=== PATIENT | female | born 1950 | race Caucasian/White ===

== ENCOUNTER 2017-01-23 19:57 | Emergency (ER) | payer OTHER ==
[~2017-01-23] VITALS: Ht 165.1 cm; Wt 70.3 kg
--- NOTE | 2017-01-23 20:50 | RADIOLOGY REPORT ---
EXAMINATION: ELBOW 3 VIEWS, RIGHT CLINICAL INFORMATION: Right elbow pain. COMPARISON: None. TECHNIQUE: AP, lateral, oblique views of the right elbow are provided. FINDINGS: There are no fractures or dislocations. There is no elbow joint effusion. There is mild degenerative change about the olecranon and coronoid process. IMPRESSION: Mild degenerative change. No evidence for acute injury.
--- NOTE | 2017-01-23 20:52 | RADIOLOGY REPORT ---
EXAMINATION: WRIST 4 VIEWS, RIGHT CLINICAL INFORMATION: Right wrist pain. COMPARISON: None. TECHNIQUE: AP, lateral, oblique, scaphoid views of the right wrist are provided. FINDINGS: There are no fractures or dislocations. There is no displacement of the pronator fat pad. The proximal carpal row is intact. IMPRESSION: Unremarkable right wrist radiographs.
--- NOTE | 2017-01-23 21:00 | ED UPPER/LOWER EXTREMITY COMPL ---
History of Present Illness General Chief Complaint: Upper Extremity Injury Stated Complaint: R ARM PAIN S/P TRIP AND FALL Source: patient Exam Limitations: no limitations Vital Signs & Intake/Output Vital Signs & Intake/Output Vital Signs Date Time Temp Pulse Resp B/P B/P Pulse O2 O2 Flow FiO2 Mean Ox Delivery Rate 01/23 2129 96.1 86 18 125/75 92 Room Air 01/23 2011 98.8 98 18 132/85 97 Room Air ED Intake and Output 01/24 0000 01/23 1200 Intake Total Output Total Balance Patient 155 lb Weight Weight Reported by Patient Measurement Method Allergies Coded Allergies: No Known Drug Allergies (NKDA 01/23/17) Triage Note: PT TO ED C/O RT ELBOW TO WRIST PAIN S/P TRIP AND FALL APPROX 2 HRS DIRECTOR OF EPIDEMIOLOGY. PT DENIES LOC. TOOK 600 MG IBUPROFIN APPROX 45 MINS DIRECTOR OF EPIDEMIOLOGY. HAS ABRAION TO BRIDGE OF NOSE. WAS NOT WEARING GLASSES AT THE TIME. GOOD PMS TO RT HAND. PAIN WORSE WITH MOVEMENT Triage Nurses Notes Reviewed? yes Onset: Abrupt Duration: hour(s): (4) Timing: no prior history Severity: moderate Severity Numbers: 7 Pain/Injury Location: Right: Elbow, Wrist. Method of Injury: fall Modifying Factors: Improves With: immobilization. Worsens With: movement. HPI: Patient is a 66-year-old female presenting to the emergency department complaining of right wrist, right elbow pain after trip and fall prior to arrival. Pain is achy throbbing worse with range of motion and palpation. She reports that she tripped over a garden hose and fell onto her right arm. Pain in the elbow more than the wrist. She took ibuprofen prior to arrival with little relief. Denies any loss of consciousness but does report that she had her face. Sensory tetanus immunization. No visual changes. Denies any nausea vomiting fevers or chills chest pain or shortness of breath. Chest was skinned her left knee. Reports mild tingling in her hand. (DEJUAN MORALES,MARAH) Past History Travel History Traveled to [place] past 21 day No Medical History Any Pertinent Medical History? see below for history Cardiovascular: hyperlipidemia Endocrine: hypothyroidism Surgical History Surgical History: non-contributory Psychosocial History What is your primary language French Tobacco Use: Current Daily Use Daily Tobacco Use Amount/Type: => 5 Cigarettes daily ETOH Use: occasional use Illicit Drug Use: denies illicit drug use Family History Hx Contributory? No (MARAH MCHUGH) Review of Systems Review of Systems Constitutional: Reports: no symptoms. Comments Review of systems: See HPI, All other systems negative. Constitutional, no chills fever or weight loss HEENT: No visual changes no sore throat no congestion Cardiovascular: No chest pain ,palpitation , orthopnea or ankle swelling Skin, no jaundice no rashes Respiratory: No dyspnea cough sputum or hemoptysis GI: No nausea no vomiting : No dysuria No hematuria Muscle skeletal: no back pain, no neck pain, Neurologic: No numbness no confusion, no headache Psych: No stress anxiety Immunology: No splenectomy or history of AIDS (MARAH MCHUGH) Physical Exam Physical Exam General Appearance: well developed/nourished, no apparent distress, alert, awake , comfortable Comments: Well-developed well-nourished person in no acute distress HEENT: extraocular motion intact, no nystagmus. Pupils equally round and reactive to light and accommodation. Superficial abrasion to the nose, no tenderness to palpation over the nasal bridge. No septal hematoma appreciated on exam. External auditory canal and Tympanic membranes clear. Pharynx normal. No swelling or edema. Neck: Supple, no lymphadenopathy, normal range of motion without pain or tenderness, no C-spine tenderness. Full range of motion. Back: Nontender Cardiovascular: Regular rate and rhythms no murmurs rubs or gallops, normal JVP Respiratory: Chest nontender. No respiratory distress.breath sounds clear to auscultation bilaterally Extremity: Tenderness palpation over the distal radius. No snuffbox tenderness. Capillary refill is intact in a virtually bilaterally. Radial pulses is 2+ bilaterally. Motor and sensory intact in upper extremity bilaterally. Tender to palpation over the right olecranon. Limited range of motion of right elbow secondary to pain. Neuro: Alert oriented x3, motor sensory normal Skin: Superficial abrasion noted on the nasal bridge, approximately 1 cm in size. No active bleeding. No surrounding erythema or edema. Another abrasion noted on the left knee covered with dressing, dressing is intact. Otherwise No appreciable rash on exposed skin, skin is warm and dry. Psych: Mood and affect is normal, memory and judgment is normal. (MARAH MCHUGH) Progress Differential Diagnosis: contusion, dislocation, fracture, sprain, tendon injury Plan of Care: Orders Procedure Date/time Status Durable Medical Equipment 01/23 2110 Active Diagnostic Imaging: Viewed by Me: Radiology Read. Discussed w/RAD: Radiology Read. Radiology Impression: NO ACUTE FX OR DISLOCAITON (MARAH MCHUGH) Departure Departure Time of Disposition: 2113 Disposition: HOME OR SELF CARE Condition: Stable Clinical Impression Primary Impression: Elbow strain Qualifiers: Encounter type: initial encounter Laterality: right Qualified Code: S56.911A - Strain of unspecified muscles, fascia and tendons at forearm level, right arm, initial encounter Secondary Impressions: Wrist sprain Qualifiers: Encounter type: initial encounter Laterality: right Qualified Code: S63.501A - Unspecified sprain of right wrist, initial encounter Referrals: ANGELA LOUISE,MARY (PCP/Family) STEVE LOUISE,NU Additional Instructions: Follow-up with orthopedics if symptoms persist. Wear sling for support. Return for worsening symptoms or concerns. Departure Forms: Customer Survey General Discharge Information (MARAH MCHUGH) PA/SECURITY VEHICLE PATROL OFFICER Co-Sign Statement Statement: ED Attending supervision documentation- [] I saw and evaluated the patient. I have also reviewed all the pertinent lab results and diagnostic results. I agree with the findings and the plan of care as documented in the PA's/SECURITY VEHIC[employer] PATROL OFFICER's documentation. [x] I have reviewed the ED Record and agree with the PA's/SECURITY VEHIC[employer] PATROL OFFICER's documentation. [] Additions or exceptions (if any) to the PAs/SECURITY VEHICLE PATROL OFFICER's note and plan are summarized below: [] (SAMMY LOUISE,ESA Anand) Procedures Splinting Location: RIGHT ELBOW Manual Alignment Performed: No Pre-Made Type: SLING Splint Applied By: splint applied by other (NRSING) Pre-Proc Neuro Vasc Exam: normal Post-Proc Neuro Vasc Exam: normal Progress: Tolerated procedure well. (MARAH MCHUGH)
[2017-01-23 21:29] VITALS: BP 125/75
== END 2017-01-23 21:31 ==
LOC: ERH 19:57
DX: S46.811A Strain of other muscles, fascia and tendons at shoulder and upper arm level, right arm, initial encounter (principal); S63.501A Unspecified sprain of right wrist, initial encounter; W18.09XA Striking against other object with subsequent fall, initial encounter; Y92.9 Unspecified place or not applicable; Y93.9 Activity, unspecified
CPT/HCPCS: 73080-RT; 73110-RT; 90471; 90714